=== PATIENT | male | born 1975 | race Caucasian/White ===

== ENCOUNTER 2017-11-23 11:34 | Observation (INO) ==
[2017-11-23 12:02] LABS: Basophils # 0.1 K/mcL (0.0-0.2); Basophils % 0.9 %; Eosinophils # 0.1 K/mcL (0.0-0.6); Eosinophils % 0.6 %; Hemoglobin 17.8 g/dL (12.9-16.9); Immature Granulocytes % 0.4 % (0-4); Lymphocytes % 33.8 %; Mean Corpuscular HGB Conc 36.3 g/dL (31.6-35.5); Mean Corpuscular Hemoglobin 29.1 pg (28.0-33.3); Mean Corpuscular Volume 80.1 fL (83.0-100.0); Mean Platelet Volume 9.5 fL (9.4-12.4); Neutrophils # 6.3 K/mcL (1.6-8.9); Platelet Count 251 K/mcL (140-400); Red Blood Count 6.12 M/mcL (4.19-5.50); Red Cell Distribution Width 14.9 % (11.5-14.5); Segmented Neutrophils % 55.3 %
[2017-11-23 12:06] LABS: Prothrombin Time 10.7 Seconds (9.4-12.1)
[2017-11-23 12:09] LABS: Activated Partial Thrombo Time 25.6 Seconds (26.0-36.0); Lymphocytes # 3.9 K/mcL (0.6-4.6)
--- NOTE | 2017-11-23 12:17 | Emergency Department Note ---
Disposition Clinical Impression: Hypokalemia Chest pain Qualifiers: Chest pain type: unspecified Qualified Code(s): R07.9 - Chest pain, unspecified Disposition: Admitted As Inpatient Condition: Good Referrals: Eryn Tariq CNP [Primary Care Provider] - Forms: ED Satisfaction Letter Time of Disposition: 15:24 Chest Pain HPI - General Chief Complaint: ED Chest Pain Stated Complaint: chest pain Time Seen by Provider: 11/23/17 11:48 Source: patient Vital Signs Reviewed: Yes Nursing Notes Reviewed: Yes - History of Present Illness HPI Narrative: This is a 42 year-male with history of HTN, DM (pt says diet controlled), and scleroderma, who presents with substernal chest pressure, which has been intermittent but gradually worsening for the past 4 days. The pain has both pleuritic and exertional components. He reports mild dyspnea. He denies any associated fever, cough, leg pain or swelling. He denies any history of heart disease, DVT, or PE. Pt complaint: chest pain Onset (ago): day(s) (4) Duration: intermittent, gradually worsening Pain Location: substernal Severity: moderate Severity scale (1-10): 8 Quality: tightness, heaviness Pain Radiation: none Improves with: nothing Worsens with: exertion, inspiration Associated symptoms: Reports: dyspnea (mild). Denies: nausea, vomiting, diaphoresis, syncope, palpitations, fever, cough, leg swelling - Related Data Previous Rx's Medication Instructions Recorded Cephalexin [Keflex] 500 mg PO QID #28 capsule 03/08/15 Hydrocodone/Acetaminophen [Cochran 1 tab PO Q6H PRN #10 tab 03/08/15 5-325 Tablet] MethylPREDNISolone [Medrol] 32 mg PO ONCE #1 tablet 03/08/15 Ibuprofen [Motrin] 400 mg PO Q4HR 7 Days tablet 03/28/15 Ondansetron ODT [Zofran ODT] 4 mg SL ONCE PRN #14 tab.rapdis 03/28/15 TraMADol [Ultram] 50 mg PO Q6HR PRN #12 tablet 03/28/15 Cyclobenzaprine [Flexeril] 10 mg PO HS PRN #10 tablet 07/24/16 Allergies Allergy/AdvReac Type Severity Reaction Status Date / Time prednisone AdvReac Joint Pain Verified 07/24/16 11:04 Constitutional: Denies: fever Cardiovascular: Reports: as per HPI, chest pain. Denies: palpitations, syncope Respiratory: Reports: dyspnea. Denies: cough, wheezes Gastrointestinal: Denies: abdominal pain, nausea, vomiting, diarrhea, constipation Musculoskeletal: Denies: back pain, neck pain Psychiatric: Reports: anxiety Chest Pain PMH - Past Medical History Medical history: Reports: hypertension, other Surgical history: Reports: other Psychiatric history: Reports: no psych history - Social History Smoking Status: Current every day smoker Alcohol use: Reports: none Drug use: Reports: none Physical Exam - General Limitations: no limitations General appearance: alert, anxious - Head Head exam: atraumatic, normocephalic - Eye Eye exam: Present: normal appearance - ENT ENT exam: normal exam - Neck Neck exam: Present: normal inspection - Respiratory Respiratory exam: Present: normal lung sounds bilaterally. Absent: wheezes - Cardiovascular Cardiovascular exam: Present: regular rate, tachycardia - Abdominal Exam Abdominal exam: Present: soft, Non-Tender. Absent: distention - Extremities Exam Extremities exam: Present: normal inspection. Absent: pedal edema, calf tenderness - Neurological Exam Neurological exam: Present: alert, oriented X3. Absent: motor sensory deficit - Psychiatric Psychiatric exam: Present: anxious - Skin Skin exam: Present: warm, dry, intact Course - Reevaluation(s) Reevaluation #1: Updated patient on test results, need for chest CTA. Time: 14:01 Reevaluation #2: Updated patient on test results. As he has both hypokalemia and is still having some chest pain, will admit for rule out as well as potassium replacement. Time: 15:24 - Consultations Consultation #1: Discussed case with Dr. Contreras. Patient accepted. Time: 15:29 Vital Signs Temperature 98.0 F 11/23/17 11:36 Pulse Rate 135 11/23/17 11:36 Respiratory Rate 20 11/23/17 11:36 Blood Pressure 137/97 11/23/17 11:36 O2 Sat by Pulse Oximetry 96 11/23/17 11:36 Temperature 98.0 F 11/23/17 12:20 Pulse Rate 63 11/23/17 14:14 Respiratory Rate 17 11/23/17 12:34 Blood Pressure 139/109 11/23/17 14:14 O2 Sat by Pulse Oximetry 99 11/23/17 14:14 Oxygen Delivery Oxygen Delivery Room Air Chest Pain - MDM Narrative Medical decision making narrative: This is 42 year-old male who presents with chest pain intermittently. He is anxious, which may be the cause, but he does have ACS risk factors as well as tachycardia, so we will work up for ACS and PE. - Lab Data Lab results reviewed: Yes I reviewed the patient's lab results. Result diagrams: 11/23/17 11:49 11/23/17 11:49 Lab Results 11/23/17 11/23/17 11/23/17 Range/Units 11:49 11:49 11:49 WBC 11.4 H (4.3-11.1) K/mcL RBC 6.12 H (4.19-5.50) M/mcL Hgb 17.8 H (12.9-16.9) g/dL Hct 49.0 (37.5-50.1) % MCV 80.1 L (83.0-100.0) fL MCH 29.1 (28.0-33.3) pg MCHC 36.3 H (31.6-35.5) g/dL RDW 14.9 H (11.5-14.5) % Plt Count 251 (140-400) K/mcL MPV 9.5 (9.4-12.4) fL Immature Gran % 0.4 (0-4) % Seg Neutrophils % 55.3 % Lymphocytes % 33.8 % Monocytes % 9.0 % Eosinophils % 0.6 % Basophils % 0.9 % Neutrophils # 6.3 (1.6-8.9) K/mcL Lymphocytes # 3.9 (0.6-4.6) K/mcL Monocytes # 1.0 (0.0-1.3) K/mcL Eosinophils # 0.1 (0.0-0.6) K/mcL Basophils # 0.1 (0.0-0.2) K/mcL PT 10.7 (9.4-12.1) Seconds INR 1.0 APTT 25.6 L (26.0-36.0) Seconds D-Dimer 846 H (0-500) ng/mLFEU Sodium 138 (136-145) mEq/L Potassium 2.8 L (3.5-5.1) mEq/L Chloride 100 (98-107) mEq/L Carbon Dioxide 24 (23-29) mEq/L BUN 2 L (6-20) mg/dL Creatinine 0.75 (0.70-1.30) mg/dL Est GFR ( Amer) > 60 (> 60) Est GFR (Non-Af Amer) > 60 (> 60) BUN/Creatinine Ratio 3 L (6-26) Glucose 110 H (70-105) mg/dL Calculated Osmolality 283 (280-300) Calcium 8.9 (8.6-10.3) mg/dL Troponin I < 0.03 (< 0.04) ng/mL - Radiology Data Radiology results reviewed: Yes I reviewed the patient's radiology results. XR/XR chest 1V portable IMPRESSION: No acute process. CT/CT angio chest IMPRESSION: No pulmonary emboli. Mild bronchial thickening which may be related to bronchitis. No pneumonic infiltrate or pleural effusion. - EKG Data EKG attestation: Yes I reviewed and interpreted this EKG. EKG results narrative: short VT EKG shows normal: sinus rhythm Rate: tachycardia [place]/QRS: normal Voltage: increased voltage throughout When compared to previous EKG there are: no significant changes Interpretation: nonspecific ST-T wave changes
[2017-11-23 12:22] LABS: Troponin I < 0.03 ng/mL (< 0.04)
[2017-11-23 12:23] LABS: BUN/Creatinine Ratio 3 (6-26); Blood Urea Nitrogen 2 mg/dL (6-20); Calcium 8.9 mg/dL (8.6-10.3); Carbon Dioxide 24 mEq/L (23-29); Chloride 100 mEq/L (98-107); Glucose 110 mg/dL (70-105); Osmolality,Calculated 283 (280-300); Potassium 2.8 mEq/L (3.5-5.1); Sodium 138 mEq/L (136-145); eGFR For African Americans > 60 (> 60); eGFR For Non-African Americans > 60 (> 60)
[2017-11-23] MEDS: Aspirin 325 MG TABLET PO ONE (12:32)
[2017-11-23] MEDS ORDERED: Isovue-370 500 ML INFUS..BTL IV ONE (13:56)
[2017-11-23] MEDS ORDERED: Potassium Chloride Elixir 20 MEQ/15 ML UDC PO ONE (13:56)
[2017-11-23] MEDS ORDERED: Ketorolac 30 MG/ML VIAL IVP ONE (15:29)
[2017-11-23] MEDS ORDERED: Naloxone 0.4 MG/ML INJ IVP PRN (17:27)
[2017-11-23] MEDS ORDERED: Ibuprofen 400 MG TABLET PO PRN (17:27)
--- NOTE | 2017-11-23 17:44 | Internal Med History&Physical ---
Date of Encounter: 11/23/17 Time of Encounter: 17:34 Internal Medicine - H&P: HPI Admitted From: Home Plans for Post Hospital Care: Home History of present illness: This is a 42 year-male with history of HTN, DM (pt says diet controlled), and scleroderma, who presents with substernal chest pressure, which has been intermittent but gradually worsening for the past 4 days. Today, the pain became so severe that he cannot even walk a few steps without having pain, he rated 10 out of 10 , The pain has both pleuritic and exertional components. He reports mild dyspnea because he is afraid to take deep breath. He denies any associated fever, cough, leg pain or swelling. He denies any history of heart disease, DVT, or PE. At the ED, he was found to have elevated d-dimer, CTA chest showed no PE, no pleural effusion, no consolidations. Patient will be admitted for observation. Past Med Surg Social Fam HX - Past Medical History Medical history: hypertension, other Psychiatric history: no psych history - Past Surgical History Surgical History: other - Social History Smoking Status: Current every day smoker Smokeless Tobacco Status: No Alcohol use: none Drug use: none Internal Medicine - H&P: Meds Buprenorphine HCl [Subutex] 8 mg SL BID 11/23/17 [History] Citalopram Hydrobromide [Citalopram HBr] 40 mg PO DAILY 11/23/17 [History] Lisinopril [Zestril] 10 mg PO DAILY 11/23/17 [History] 3 Allergy/AdvReac Type Severity Reaction Status Date / Time prednisone AdvReac Joint Pain Verified 07/24/16 11:04 All Systems PM: A 10-system review of systems was performed and is negative for pertinent findings except as documented above in the HPI. Review of systems: REVIEW OF SYSTEMS: CONSTITUTIONAL: No weight loss, fever, chills, weakness or fatigue. HEENT: Eyes: No visual loss, blurred vision, double vision or yellow sclerae. Ears, Nose, Throat: No hearing loss, sneezing, congestion, runny nose or sore throat. SKIN: No rash or itching. CARDIOVASCULAR: see HPI. RESPIRATORY: No shortness of breath, cough or sputum. GASTROINTESTINAL: No anorexia, nausea, vomiting or diarrhea. No abdominal pain or blood. GENITOURINARY: No dysuria, urgency, or frequency. NEUROLOGICAL: No headache, dizziness, syncope, paralysis, ataxia, numbness or tingling in the extremities. No change in bowel or bladder control. MUSCULOSKELETAL: No muscle, back pain, joint pain or stiffness. HEMATOLOGIC: No anemia, bleeding or bruising. LYMPHATICS: No enlarged nodes. No history of splenectomy. PSYCHIATRIC: No history of depression or anxiety. ENDOCRINOLOGIC: No reports of sweating, cold or heat intolerance. No polyuria or polydipsia. - Constitutional Vitals: Temp Pulse Resp BP Pulse Ox 98.4 F 86 16 147/100 98 11/23/17 17:10 11/23/17 17:10 11/23/17 17:10 11/23/17 17:10 11/23/17 17:10 General appearance: Present: A&O X 3 Exam: PHYSICAL EXAMINATION: GENERAL APPEARANCE: The patient is alert, oriented and in no acute distress. HEENT: Head is normocephalic. The sinuses are nontender. Pupils are equal and reactive. The nares are patent. Oropharynx clear without lesions. NECK: Supple without lymphadenopathy. HEART: Regular rate and rhythm. LUNGS: No crackles or wheezes are heard. ABDOMEN: Soft, nontender, nondistended with good bowel sounds heard. Inguinal area is normal. EXTREMITIES: Without cyanosis, clubbing or edema. NEUROLOGICAL: Gross nonfocal. SKIN: Warm and dry without any rash. Internal Med - H&P Results - Labs CBC & Chem 7: 11/23/17 11:49 11/23/17 11:49 - Assessment and plan (1) Chest pain Current Visit: Yes Status: Acute Assessment and plan: 42-year-old male with past medical history of scleroderma and hypertension presented with acute onset of pleuritic chest pain. EKG no acute ST-T change, first set of troponins negative. - Pain is pleuritic and positional, consistent with pericarditis/pleuritis in the setting of scleroderma, we will check ESR/CRP/pro-calcitonin. Continue ibuprofen/tramadol for pain. - Echocardiogram. - Cycle troponin, telemetry monitoring, EKG as needed. Qualifiers: Chest pain type: unspecified Qualified Code(s): R07.9 - Chest pain, unspecified (2) Hypertension Current Visit: No Status: Chronic Assessment and plan: BP well controlled, continue home medications. Qualifiers: Hypertension type: essential hypertension Qualified Code(s): I10 - Essential (primary) hypertension (3) Scleroderma Current Visit: No Status: Chronic Assessment and plan: On remission, not on any medications at home. (4) Hypokalemia Current Visit: Yes Status: Acute Assessment and plan: Replaced, repeat BMP in a.m. - Time Spent With Patient Total time spent is greater than 50% in coordination of care (as documented) at patient's floor/unit and/or counseling patient: Greater than 35 minutes
[2017-11-23] MEDS: *HR* Heparin 5,000 UNIT/ML VIAL SQ SCH (18:28)
[2017-11-23] MEDS: traMADol 50 MG TABLET PO PRN (18:28)
[2017-11-23] MEDS: Ondansetron 4 MG/2 ML VIAL IVP PRN (22:06)
[2017-11-23] MEDS: *HR* Buprenorphine HCl 8 MG TAB.SUBL SL SCH (22:06)
[2017-11-24 00:49] LABS: Basophils # 0.1 K/mcL (0.0-0.2); Basophils % 0.6 %; Eosinophils % 0.3 %; Hematocrit 47.6 % (37.5-50.1); Hemoglobin 17.5 g/dL (12.9-16.9); Immature Granulocytes % 0.4 % (0-4); Lymphocytes # 2.9 K/mcL (0.6-4.6); Lymphocytes % 20.2 %; Mean Corpuscular HGB Conc 36.8 g/dL (31.6-35.5); Mean Corpuscular Hemoglobin 30.2 pg (28.0-33.3); Mean Corpuscular Volume 82.1 fL (83.0-100.0); Mean Platelet Volume 9.6 fL (9.4-12.4); Monocytes # 1.1 K/mcL (0.0-1.3); Monocytes % 7.8 %; Neutrophils # 10.1 K/mcL (1.6-8.9); Platelet Count 214 K/mcL (140-400); Red Cell Distribution Width 14.1 % (11.5-14.5); Segmented Neutrophils % 70.7 %
[2017-11-24 01:06] LABS: Alanine Aminotransferase 19 Units/L (7-52); Albumin 4.1 g/dL (3.5-5.7); Albumin/Globulin Ratio 1.4 (1.1-2.2); Alkaline Phosphatase 80 Units/L (34-104); Aspartate Amino Transferase 19 Units/L (13-39); BUN/Creatinine Ratio 4 (6-26); Bilirubin,Total 1.6 mg/dL (0.3-1.0); Blood Urea Nitrogen 3 mg/dL (6-20); Calcium 9.3 mg/dL (8.6-10.3); Carbon Dioxide 24 mEq/L (23-29); Chloride 104 mEq/L (98-107); Chol/HDL Ratio 2.4 (0-4.9); Cholesterol 127 mg/dL (< 200); Glucose 122 mg/dL (70-105); HDL Cholesterol 54 mg/dL (40-59); LDL Cholesterol,Calculated 47 mg/dL (0-99); Osmolality,Calculated 284 (280-300); Potassium 3.1 mEq/L (3.5-5.1); Sodium 138 mEq/L (136-145); Total Protein 7.1 g/dL (6.4-8.9); Triglycerides 130 mg/dL (< 150); eGFR For African Americans > 60 (> 60); eGFR For Non-African Americans > 60 (> 60)
[2017-11-24] MEDS: Ibuprofen 800 MG TABLET PO PRN ×3 (02:21→20:27)
[2017-11-24] MEDS: traMADol 50 MG TABLET PO PRN (05:11)
[2017-11-24] MEDS: Ondansetron 4 MG/2 ML VIAL IVP PRN ×2 (05:12→20:37)
[2017-11-24] MEDS: *HR* Heparin 5,000 UNIT/ML VIAL SQ SCH ×2 (05:12→17:40)
[2017-11-24] MEDS: *HR* Buprenorphine HCl 8 MG TAB.SUBL SL SCH ×2 (09:05→20:27)
[2017-11-24] MEDS ORDERED: diazePAM 5 MG TABLET PO PRN (12:55)
--- NOTE | 2017-11-24 13:05 | Internal Med Progress Note ---
Date of Encounter: 11/24/17 Time of Encounter: 13:01 - Assessment and plan (1) Chest pain Current Visit: Yes Status: Acute Assessment and plan: 42-year-old male with past medical history of scleroderma and hypertension presented with acute onset of pleuritic chest pain. EKG no acute ST-T change, troponins negative. - Pain is pleuritic and positional, pericarditis/pleuritis was suspected in the setting of scleroderma, however, CRP/ESR are normal. Pro-calcitonin pending. WBC was elevated, but no identifiable infectious source, antibiotics not indicated, likely stress related, continue monitoring. CT chest possible bronchitis but no other abnormalities. Pending echocardiogram. - Patient describes the pain was so severe that he even cannot walk a few steps without pain. Pain was started at the left chest and then radiated to the right chest. It is not typical for cardiac related chest pain. Musculoskeletal pain was suspected, we will start the patient on Lidoderm patch. - Patient currently taking Subutex for chronic pain, he also take Valium at home for spasm. Qualifiers: Chest pain type: unspecified Qualified Code(s): R07.9 - Chest pain, unspecified (2) Hypertension Current Visit: No Status: Chronic Assessment and plan: BP well controlled, continue home medications. Qualifiers: Hypertension type: essential hypertension Qualified Code(s): I10 - Essential (primary) hypertension (3) Scleroderma Current Visit: No Status: Chronic Assessment and plan: On remission, not on any medications at home. (4) Hypokalemia Current Visit: Yes Status: Acute Assessment and plan: Replaced, repeat BMP in a.m. - Time Spent With Patient Total time spent is greater than 50% in coordination of care (as documented) at patient's floor/unit and/or counseling patient: Greater than 35 minutes - Subjective Interval history: Patient is seen and examined in the room, he still reported severe chest pain when he gets around. He denies fever, chills, or night sweats. He has no palpitation, syncope, or shortness of breath. - Constitutional Vitals: Temp Pulse Resp BP Pulse Ox 98.0 F 96 18 141/103 96 11/24/17 12:30 11/24/17 12:30 11/24/17 12:30 11/24/17 12:30 11/24/17 12:30 General appearance: Present: A&O X 3 Exam: PHYSICAL EXAMINATION: GENERAL APPEARANCE: The patient is alert, oriented and in no acute distress. HEENT: Head is normocephalic. The sinuses are nontender. Pupils are equal and reactive. The nares are patent. Oropharynx clear without lesions. NECK: Supple without lymphadenopathy. HEART: Regular rate and rhythm. LUNGS: No crackles or wheezes are heard. ABDOMEN: Soft, nontender, nondistended with good bowel sounds heard. Inguinal area is normal. EXTREMITIES: Without cyanosis, clubbing or edema. NEUROLOGICAL: Gross nonfocal. SKIN: Warm and dry without any rash. Internal Medicine: Result - Labs CBC & Chem 7: 11/24/17 00:29 11/24/17 00:29 Labs: Short CBC 11/24/17 Range/Units 00:29 WBC 14.3 H (4.3-11.1) K/mcL Hgb 17.5 H (12.9-16.9) g/dL Hct 47.6 (37.5-50.1) % Plt Count 214 (140-400) K/mcL Neutrophils # 10.1 H (1.6-8.9) K/mcL BMP 11/24/17 00:29 Sodium 138 Potassium 3.1 L Chloride 104 Carbon Dioxide 24 BUN 3 L Creatinine 0.72 Glucose 122 H Calcium 9.3 Cardiac Enzymes 11/23/17 11/24/17 Range/Units 17:52 00:29 Troponin I < 0.03 < 0.03 (< 0.04) ng/mL Liver Function 11/24/17 Range/Units 00:29 Total Bilirubin 1.6 H (0.3-1.0) mg/dL AST 19 (13-39) Units/L ALT 19 (7-52) Units/L Alkaline Phosphatase 80 (34-104) Units/L Albumin 4.1 (3.5-5.7) g/dL - ABG Interpretation ABG results: PT/INR, D-dimer PT 10.7 Seconds (9.4-12.1) 11/23/17 11:49 D-Dimer 846 ng/mLFEU (0-500) H 11/23/17 11:49 Consult Discharge Plan - Plan Referrals: Eryn Tariq, [employer] [Primary Care Provider] -
[2017-11-24] MEDS: diazePAM 5 MG TABLET PO PRN ×2 (13:26→17:45)
[2017-11-24] MEDS: Ringers Solution, Lactated 1,000 ML IVC SCH ×2 (13:30→22:28)
--- NOTE | 2017-11-24 23:20 | Electrocardiograph Report ---
[address] [address] Test Date: 2017-11-23 Pat Name: Patrick Herring Department: 104 Room: 2A36 Gender: M Head Waiter: ELIZABETH : 1975 Requested By: Barrett Cerda Order Number: [id number] Reading MD: Jimena Sena Measurements Intervals [place] Rate: 125 P: 71 FL: 88 QRS: 75 QRSD: 82 T: 89 QT: 324 QTc: 398 Interpretive Statements SINUS TACHYCARDIA WITH SHORT FL INTERVAL MINIMAL VOLTAGE CRITERIA FOR LVH, CONSIDER NORMAL VARIANT NONSPECIFIC ST & T-WAVE ABNORMALITY ABNORMAL RHYTHM ECG Electronically Signed On 11-24-2017 23:18:41 EDT by Jimena Sena
[2017-11-25] MEDS: diazePAM 5 MG TABLET PO PRN (01:40)
[2017-11-25] MEDS: *HR* Heparin 5,000 UNIT/ML VIAL SQ SCH (05:19)
[2017-11-25] MEDS: Ringers Solution, Lactated 1,000 ML IVC SCH (05:53)
[2017-11-25] MEDS: *HR* Buprenorphine HCl 8 MG TAB.SUBL SL SCH (08:44)
[2017-11-25] MEDS ORDERED: Lisinopril 20 MG TABLET PO SCH (09:00)
[2017-11-25] MEDS ORDERED: Lidocaine Viscous Oral Soln 15 ML SOLUTION MM PRN (10:03)
[2017-11-25 11:20] VITALS: BP 137/86
[2017-11-25] MEDS: Ibuprofen 800 MG TABLET PO PRN (11:41)
[2017-11-25] MEDS ORDERED: Potassium Chloride 40 MEQ, Lidocaine 1% 2 ML in D5% in Water 500 ML IVPB ONE (14:50)
--- NOTE | 2017-11-25 14:51 | Discharge Summary ---
- NOTES TO OUTPATIENT PROVIDER Notes to Outpatient Provider: Consider follow-up with rheumatology for reported scleroderma Orders not resulted at time of discharge: Pending orders 11/23/17 17:52 Procalcitonin Routine 11/26/17 09:00 PTT [Activated Partial Thrombo Time] [COAG] Timed Date of Encounter: 11/25/17 Time of Encounter: 14:30 - Discharge Diagnosis (1) Chest pain Priority: Primary Status: Acute Assessment and Plan: CT negative for pulmonary embolism or aortic pathology. Echo shows no wall motion abnormalities with preserved ejection fraction. Troponins were negative. There are no new EKG ST or T-wave changes. As such, PE, ACS and aortic dissection had been ruled out. He does report scleroderma which can cause esophageal pathologies. We explained that he needs to see his hopper operator in clinic and possibly gastroenterology subsequently. Qualifiers: Chest pain type: unspecified Qualified Code(s): R07.9 - Chest pain, unspecified (2) Hypokalemia Priority: Secondary Status: Acute Assessment and Plan: Replete as needed (3) Hypertension Priority: Secondary Status: Chronic Assessment and Plan: BP well controlled, continue home medications. Qualifiers: Hypertension type: essential hypertension Qualified Code(s): I10 - Essential (primary) hypertension (4) Scleroderma Priority: Secondary Status: Suspected Assessment and Plan: It is unclear if he has scleroderma. There is no antibodies and in our system to prove this. He does not have clinical manifestations of scleroderma. He reports scleroderma diagnosed at age 2 and has not been on any therapy. When questioned further about manifestations that he is experienced in the past he points to joint surgeries that he had to undergo because of scleroderma. He reports seeing [facility] for treatment but is not following up with them. Advised to establish contact with a hopper operator in follow-up in clinic. Hospital course: Mr. Herring is a 42 year old male Discharge discussed with: patient - Time Spent with Patient Total time spent providing and/or coordinating discharge services: Greater than 30 minutes - Discharge Medications Home Medications: Buprenorphine HCl [Subutex] 8 mg SL BID 11/23/17 [History] Citalopram Hydrobromide [Citalopram HBr] 40 mg PO DAILY 11/23/17 [History] Lisinopril [Zestril] 10 mg PO DAILY 11/23/17 [History] Diazepam 5 mg PO TID PRN 11/24/17 [History] Allergies/Adverse Reactions: 3 Allergy/AdvReac Type Severity Reaction Status Date / Time prednisone AdvReac Joint Pain Verified 07/24/16 11:04 Date of admission: 11/23/17 15:55 Primary care physician: Eryn Tariq CNP Discharging clinician: Yefri Maya Anticipated date of discharge: 11/25/17 - Constitutional Vitals: Temp Pulse Resp BP Pulse Ox 98.2 F 68 16 137/86 97 11/25/17 11:15 11/25/17 11:15 11/25/17 11:15 11/25/17 11:15 11/25/17 11:15 General appearance: Present: A&O X 3 Exam: Physical exam Gen: Comfortable, laying in bed, in no visible distress HEENT: Normocephalic, atraumatic. No conjunctival icterus. Moist oral mucosa. Neck: Supple Lungs: Clear to auscultation, no foreign sounds Heart: Normal S1-S2, no murmurs rubs or gallops Abdomen: Normoactive bowel sounds, no guarding rigidity or tenderness Extremities: No edema clubbing or cyanosis Neuro: Alert oriented 3, no focal deficits Skin: No skin lesions - Patient Status Disposition: Home, Self-Care Functional capacity at discharge: independent ambulation Overall status at discharge: patient is back to baseline - Discharge Instructions Follow Up With: Eryn Tariq CNP [Primary Care Provider] - Additional Instructions: Follow-up with the rheumatology clinic at [facility]. - Diet and Activity Activity: resume usual activities as tolerated Diet: advance to your usual diet
== END 2017-11-25 15:42 | disposition home or self-care (01) ==
LOC: 2ANU 11:34 → EMEROO 11:34 → 2ANU 16:18
PROVIDERS: ADMIT Student in an Organized Health Care Education/Training Program; ATTEND General Practice

== ENCOUNTER 2019-11-19 22:19 | Inpatient (IN) ==
[2019-11-19] MEDS ORDERED: *HR* LORazepam 2 MG/ML VIAL IVP ONE (22:32)
[2019-11-19] MEDS ORDERED: 0.9 % Sodium Chloride 500 ML IVC ONE (22:32)
[2019-11-19] MEDS ORDERED: Ondansetron 4 MG/2 ML VIAL IVP ONE (22:38)
[2019-11-19 23:17] LABS: Basophils % 0.4 %; Hematocrit 52.9 % (37.5-50.1); Immature Granulocytes % 0.2 % (0-4); Lymphocytes # 3.6 K/mcL (0.6-4.6); Lymphocytes % 32.1 %; Mean Corpuscular Hemoglobin 29.9 pg (28.0-33.3); Mean Corpuscular Volume 87.9 fL (83.0-100.0); Mean Platelet Volume 10.1 fL (9.4-12.4); Monocytes # 0.6 K/mcL (0.0-1.3); Monocytes % 5.5 %; Neutrophils # 6.9 K/mcL (1.6-8.9); Platelet Count 319 K/mcL (140-400); Red Blood Count 6.02 M/mcL (4.19-5.50); Red Cell Distribution Width 12.7 % (11.5-14.5); Segmented Neutrophils % 61.8 %; White Blood Count 11.1 K/mcL (4.3-11.1)
[2019-11-19 23:19] LABS: Bilirubin,Urine Negative (Negative); Blood,Urine Negative (Negative); Clarity,Urine Clear (Clear); Color,Urine Yellow (Yellow); Glucose,Urine (UA) Normal (Normal); Ketones,Urine Negative (Negative); Leukocyte Esterase,Urine Negative (Negative); Nitrite,Urine Negative (Negative); PH,Urine 7.5 pH Units (5.0-8.0); Protein,Urine 100 mg/dL (Neg-Trace); Specific Gravity,Urine 1.016 (1.010-1.025); Urobilinogen,Urine Normal (Normal)
[2019-11-19 23:24] LABS: Bacteria,Urine None Seen per hpf (None-Few); Hyaline Casts,Urine None Seen per lpf (None-Few); Squamous Epithelial Cell,Urine Few per lpf (None-Few); WBC,Urine 0-3 per hpf (0-3)
[2019-11-19 23:28] LABS: Amphetamine Screen,Urine Negative ng/mL (Cutoff=1000); Barbiturate Screen,Urine Negative ng/mL (Cutoff=200); Benzodiazepines Screen,Urine Negative ng/mL (Cutoff=200); Cannabinoid Screen,Urine Positive ng/mL (Cutoff = 50); Cocaine Screen,Urine Negative ng/mL (Cutoff= 300); Opiate Screen,Urine Negative ng/mL (Cutoff=300); Phencyclidine Screen,Urine Negative ng/mL (Cutoff=25)
[2019-11-19 23:37] LABS: Acetaminophen < 10 mcg/mL (10-20); BUN/Creatinine Ratio 8 (6-26); Blood Urea Nitrogen 7 mg/dL (6-20); Carbon Dioxide 26 mEq/L (23-29); Chloride 98 mEq/L (98-107); Ethanol 370 mg/dL (Less than 10); Glucose 187 mg/dL (70-105); Osmolality,Calculated 295 (280-300); Potassium 3.4 mEq/L (3.5-5.1); Salicylate < 2.5 mg/dL (15.0-30.0); Sodium 141 mEq/L (136-145); eGFR For African Americans > 60 (> 60); eGFR For Non-African Americans > 60 (> 60)
[2019-11-19] MEDS ORDERED: MVI, adult with vitamin K 10 ML, Folic Acid 1 MG, Thiamine (B-1) 100 MG in 0.9 % Sodi... IV ONE (23:45)
[2019-11-20] MEDS ORDERED: Naloxone 0.4 MG/ML INJ IVP PRN (01:26)
[2019-11-20] MEDS ORDERED: *HR* LORazepam 2 MG/ML VIAL IVP PRN ×2 (01:30)
[2019-11-20] MEDS: *HR* LORazepam 2 MG/ML VIAL IVP PRN ×4 (02:07→19:55)
[2019-11-20 04:17] LABS: Hematocrit 46.8 % (37.5-50.1); Mean Corpuscular Hemoglobin 29.7 pg (28.0-33.3); Mean Corpuscular Volume 87.3 fL (83.0-100.0); Mean Platelet Volume 9.9 fL (9.4-12.4); Platelet Count 255 K/mcL (140-400); Red Blood Count 5.36 M/mcL (4.19-5.50); Red Cell Distribution Width 12.7 % (11.5-14.5); White Blood Count 13.2 K/mcL (4.3-11.1)
[2019-11-20 04:18] LABS: Hemoglobin 15.9 g/dL (12.9-16.9)
[2019-11-20 04:31] LABS: BUN/Creatinine Ratio 13 (6-26); Blood Urea Nitrogen 9 mg/dL (6-20); Calcium 8.2 mg/dL (8.6-10.3); Carbon Dioxide 27 mEq/L (23-29); Chloride 100 mEq/L (98-107); Glucose 123 mg/dL (70-105); Osmolality,Calculated 290 (280-300); Potassium 3.7 mEq/L (3.5-5.1); Sodium 140 mEq/L (136-145); eGFR For African Americans > 60 (> 60); eGFR For Non-African Americans > 60 (> 60)
[2019-11-20] MEDS: *HR* Heparin 5,000 UNIT/ML VIAL SQ SCH ×2 (05:15→17:09)
[2019-11-20] MEDS: Ondansetron 4 MG/2 ML VIAL IVP PRN ×2 (05:21→17:07)
[2019-11-20 08:19] LABS: Estimated Average Glucose 94 mg/dl
[2019-11-20] MEDS: Thiamine (B-1) 100 MG TABLET PO SCH (08:49)
[2019-11-20] MEDS: Folic Acid 1 MG TABLET PO SCH (08:49)
[2019-11-20] MEDS: Vitamin B Complex/Vit C/Vit E 1 EACH TABLET PO SCH (08:49)
[2019-11-20] MEDS ORDERED: Thiamine (B-1) 100 MG TABLET PO SCH (09:00)
[2019-11-20] MEDS ORDERED: Ondansetron 4 MG/2 ML VIAL IVP ONE (19:42)
[2019-11-20] MEDS ORDERED: Acetaminophen 325 MG TABLET PO ONE (20:04)
[2019-11-21] MEDS: *HR* LORazepam 2 MG/ML VIAL IVP PRN ×6 (00:25→20:24)
[2019-11-21] MEDS: Ondansetron 4 MG/2 ML VIAL IVP PRN ×2 (01:48→18:50)
[2019-11-21 02:52] LABS: Hematocrit 39.6 % (37.5-50.1); Mean Corpuscular HGB Conc 34.6 g/dL (31.6-35.5); Mean Corpuscular Hemoglobin 30.2 pg (28.0-33.3); Mean Corpuscular Volume 87.4 fL (83.0-100.0); Mean Platelet Volume 10.4 fL (9.4-12.4); Platelet Count 193 K/mcL (140-400); Red Blood Count 4.53 M/mcL (4.19-5.50); Red Cell Distribution Width 12.7 % (11.5-14.5); White Blood Count 7.5 K/mcL (4.3-11.1)
[2019-11-21 02:55] LABS: Hemoglobin 13.7 g/dL (12.9-16.9)
[2019-11-21 03:08] LABS: BUN/Creatinine Ratio 12 (6-26); Blood Urea Nitrogen 12 mg/dL (6-20); Calcium 9.1 mg/dL (8.6-10.3); Carbon Dioxide 29 mEq/L (23-29); Chloride 101 mEq/L (98-107); Glucose 131 mg/dL (70-105); Magnesium 1.8 mg/dL (1.6-2.6); Osmolality,Calculated 282 (280-300); Potassium 3.3 mEq/L (3.5-5.1); Sodium 135 mEq/L (136-145); eGFR For African Americans > 60 (> 60); eGFR For Non-African Americans > 60 (> 60)
[2019-11-21] MEDS ORDERED: Acetaminophen IV 1,000 MG/100 ML INFUS..BTL IVPB ONE (03:30)
[2019-11-21] MEDS: *HR* Heparin 5,000 UNIT/ML VIAL SQ SCH ×2 (05:03→17:51)
[2019-11-21] MEDS: Thiamine (B-1) 100 MG TABLET PO SCH (08:36)
[2019-11-21] MEDS: Vitamin B Complex/Vit C/Vit E 1 EACH TABLET PO SCH (08:36)
[2019-11-21] MEDS: Folic Acid 1 MG TABLET PO SCH (08:36)
[2019-11-22 01:20] LABS: Hematocrit 43.8 % (37.5-50.1); Hemoglobin 14.6 g/dL (12.9-16.9); Mean Corpuscular HGB Conc 33.3 g/dL (31.6-35.5); Mean Corpuscular Hemoglobin 29.9 pg (28.0-33.3); Mean Corpuscular Volume 89.8 fL (83.0-100.0); Mean Platelet Volume 10.4 fL (9.4-12.4); Platelet Count 204 K/mcL (140-400); Red Blood Count 4.88 M/mcL (4.19-5.50); Red Cell Distribution Width 12.5 % (11.5-14.5); White Blood Count 9.6 K/mcL (4.3-11.1)
[2019-11-22 01:38] LABS: BUN/Creatinine Ratio 14 (6-26); Blood Urea Nitrogen 12 mg/dL (6-20); Calcium 9.4 mg/dL (8.6-10.3); Carbon Dioxide 27 mEq/L (23-29); Chloride 103 mEq/L (98-107); Glucose 96 mg/dL (70-105); Osmolality,Calculated 286 (280-300); Potassium 3.5 mEq/L (3.5-5.1); Sodium 138 mEq/L (136-145); eGFR For African Americans > 60 (> 60); eGFR For Non-African Americans > 60 (> 60)
[2019-11-22] MEDS: Nicotine 21 MG PATCH.TD24 TD SCH ×2 (01:42→20:16)
[2019-11-22] MEDS: Melatonin 3 MG TABLET PO PRN ×2 (01:42→20:16)
[2019-11-22] MEDS: *HR* LORazepam 2 MG/ML VIAL IVP PRN ×3 (04:08→20:17)
[2019-11-22] MEDS: *HR* Heparin 5,000 UNIT/ML VIAL SQ SCH ×2 (05:01→15:27)
[2019-11-22] MEDS: Thiamine (B-1) 100 MG TABLET PO SCH (08:57)
[2019-11-22] MEDS: Vitamin B Complex/Vit C/Vit E 1 EACH TABLET PO SCH (08:57)
[2019-11-22] MEDS: Folic Acid 1 MG TABLET PO SCH (08:57)
[2019-11-22] MEDS: Ondansetron 4 MG/2 ML VIAL IVP PRN (09:15)
[2019-11-22] MEDS: Pantoprazole 40 MG VIAL IVP SCH (12:07)
[2019-11-23] MEDS: *HR* LORazepam 2 MG/ML VIAL IVP PRN ×3 (03:11→19:44)
[2019-11-23] MEDS: Ondansetron 4 MG/2 ML VIAL IVP PRN ×2 (03:19→18:04)
[2019-11-23] MEDS: *HR* Heparin 5,000 UNIT/ML VIAL SQ SCH ×2 (05:35→17:22)
[2019-11-23 06:51] LABS: Hematocrit 37.4 % (37.5-50.1); Hemoglobin 12.9 g/dL (12.9-16.9); Mean Corpuscular HGB Conc 34.5 g/dL (31.6-35.5); Mean Corpuscular Hemoglobin 30.7 pg (28.0-33.3); Mean Platelet Volume 10.8 fL (9.4-12.4); Platelet Count 174 K/mcL (140-400); Red Cell Distribution Width 12.7 % (11.5-14.5); White Blood Count 9.9 K/mcL (4.3-11.1)
[2019-11-23 07:15] LABS: BUN/Creatinine Ratio 16 (6-26); Blood Urea Nitrogen 12 mg/dL (6-20); Calcium 9.4 mg/dL (8.6-10.3); Carbon Dioxide 28 mEq/L (23-29); Chloride 104 mEq/L (98-107); Glucose 102 mg/dL (70-105); Magnesium 1.9 mg/dL (1.6-2.6); Osmolality,Calculated 288 (280-300); Potassium 4.3 mEq/L (3.5-5.1); Sodium 139 mEq/L (136-145); eGFR For African Americans > 60 (> 60); eGFR For Non-African Americans > 60 (> 60)
[2019-11-23] MEDS: Folic Acid 1 MG TABLET PO SCH (09:08)
[2019-11-23] MEDS: Pantoprazole 40 MG VIAL IVP SCH (09:08)
[2019-11-23] MEDS: Vitamin B Complex/Vit C/Vit E 1 EACH TABLET PO SCH (09:08)
[2019-11-23] MEDS: Thiamine (B-1) 100 MG TABLET PO SCH (09:08)
[2019-11-23] MEDS ORDERED: *HR* Promethazine 25 MG/ML VIAL IVP ONE (19:26)
[2019-11-23] MEDS: Melatonin 3 MG TABLET PO PRN (22:18)
[2019-11-23] MEDS: Nicotine 21 MG PATCH.TD24 TD SCH (22:19)
[2019-11-24] MEDS ORDERED: Ketorolac 15 MG/ML VIAL IVP PRN (02:11)
[2019-11-24] MEDS: *HR* LORazepam 2 MG/ML VIAL IVP PRN (03:30)
[2019-11-24] MEDS: *HR* Heparin 5,000 UNIT/ML VIAL SQ SCH (05:28)
[2019-11-24 07:04] VITALS: BP 122/87
[2019-11-24 08:07] LABS: Hematocrit 36.4 % (37.5-50.1); Hemoglobin 12.6 g/dL (12.9-16.9); Mean Corpuscular HGB Conc 34.6 g/dL (31.6-35.5); Mean Corpuscular Hemoglobin 30.8 pg (28.0-33.3); Mean Platelet Volume 10.3 fL (9.4-12.4); Platelet Count 186 K/mcL (140-400); Red Blood Count 4.09 M/mcL (4.19-5.50); White Blood Count 10.9 K/mcL (4.3-11.1)
[2019-11-24 08:14] LABS: BUN/Creatinine Ratio 21 (6-26); Blood Urea Nitrogen 18 mg/dL (6-20); Carbon Dioxide 28 mEq/L (23-29); Chloride 102 mEq/L (98-107); Glucose 85 mg/dL (70-105); Osmolality,Calculated 285 (280-300); Sodium 137 mEq/L (136-145); eGFR For African Americans > 60 (> 60); eGFR For Non-African Americans > 60 (> 60)
[2019-11-24] MEDS: Vitamin B Complex/Vit C/Vit E 1 EACH TABLET PO SCH (08:35)
[2019-11-24] MEDS: Thiamine (B-1) 100 MG TABLET PO SCH (08:35)
[2019-11-24] MEDS: Pantoprazole 40 MG VIAL IVP SCH (08:35)
[2019-11-24] MEDS: Folic Acid 1 MG TABLET PO SCH (08:35)
[2019-11-24] MEDS: Ondansetron 4 MG/2 ML VIAL IVP PRN (08:47)
== END 2019-11-24 11:07 | disposition home or self-care (01) | DRG 897 ==
LOC: 3BNU 22:19 → EMEROOARM 22:19 → SUATTDRO 11-20 → 3BNU 11-20 00:54
PROVIDERS: ADMIT Internal Medicine; ATTEND Internal Medicine

== ENCOUNTER 2020-07-23 17:59 | Inpatient (IN) ==
[2020-07-23 18:52] LABS: Basophils # 0.1 K/mcL (0.0-0.2); Basophils % 0.6 %; Hematocrit 45.5 % (37.5-50.1); Hemoglobin 15.9 g/dL (12.9-16.9); Immature Granulocytes % 0.4 % (0-4); Lymphocytes # 2.6 K/mcL (0.6-4.6); Lymphocytes % 33.6 %; Mean Corpuscular HGB Conc 34.9 g/dL (31.6-35.5); Mean Corpuscular Hemoglobin 28.9 pg (28.0-33.3); Mean Corpuscular Volume 82.7 fL (83.0-100.0); Mean Platelet Volume 9.6 fL (9.4-12.4); Monocytes # 0.3 K/mcL (0.0-1.3); Monocytes % 3.2 %; Neutrophils # 4.8 K/mcL (1.6-8.9); Platelet Count 312 K/mcL (140-400); Red Cell Distribution Width 12.2 % (11.5-14.5); Segmented Neutrophils % 62.2 %; White Blood Count 7.7 K/mcL (4.3-11.1)
[2020-07-23 18:56] LABS: Bilirubin,Urine Negative (Negative); Blood,Urine Negative (Negative); Clarity,Urine Clear (Clear); Color,Urine Colorless (Yellow); Glucose,Urine (UA) Normal (Normal); Ketones,Urine Negative (Negative); Leukocyte Esterase,Urine Negative (Negative); Nitrite,Urine Negative (Negative); Protein,Urine Trace mg/dL (Neg-Trace); Specific Gravity,Urine 1.006 (1.010-1.025); Urobilinogen,Urine Normal (Normal)
[2020-07-23 19:00] LABS: Amphetamine Screen,Urine Negative ng/mL (Cutoff=1000); Barbiturate Screen,Urine Negative ng/mL (Cutoff=200); Benzodiazepines Screen,Urine Negative ng/mL (Cutoff=200); Cannabinoid Screen,Urine Positive ng/mL (Cutoff = 50); Cocaine Screen,Urine Negative ng/mL (Cutoff= 300); Opiate Screen,Urine Negative ng/mL (Cutoff=300); Phencyclidine Screen,Urine Negative ng/mL (Cutoff=25)
[2020-07-23 19:09] LABS: Acetaminophen < 10 mcg/mL (10-20); BUN/Creatinine Ratio 7 (6-26); Blood Urea Nitrogen 5 mg/dL (6-20); Calcium 9.6 mg/dL (8.6-10.3); Carbon Dioxide 29 mEq/L (23-29); Chloride 102 mEq/L (98-107); Ethanol 442 mg/dL (Less than 10); Glucose 139 mg/dL (70-105); Osmolality,Calculated 300 (280-300); Salicylate < 2.5 mg/dL (15.0-30.0); Sodium 145 mEq/L (136-145); eGFR For African Americans > 60 (> 60); eGFR For Non-African Americans > 60 (> 60)
[2020-07-23 19:40] LABS: Troponin I < 0.03 ng/mL (< 0.04)
[2020-07-23] MEDS ORDERED: *HR* LORazepam 2 MG/ML VIAL IVP PRN ×2 (21:15)
[2020-07-23] MEDS ORDERED: Prochlorperazine 10 MG/2 ML VIAL IVP PRN (21:21)
[2020-07-23] MEDS ORDERED: Naloxone 0.4 MG/ML INJ IVP PRN (21:21)
[2020-07-23] MEDS ORDERED: *HR* Dextrose 50 % in Water (Vial) 50 ML VIAL IVP PRN (21:26)
[2020-07-23] MEDS ORDERED: Dextrose Gel 15 GM/37.5 ML TUBE PO PRN ×2 (21:26)
[2020-07-23] MEDS ORDERED: D5% in Water 1,000 ML IVC PRN (21:26)
[2020-07-23] MEDS ORDERED: Potassium Chloride 20 MEQ, Lidocaine 1% 2 ML in 0.9 % Sodium Chloride 250 ML IVPB ONE (21:27)
[2020-07-23 21:39] LABS: Amylase 56 Units/L (29-103); Lipase 22 Units/L (11-82)
[2020-07-23] MEDS: *HR* LORazepam 2 MG/ML VIAL IVP PRN (23:20)
[2020-07-24 00:59] LABS: BUN/Creatinine Ratio 12 (6-26); Blood Urea Nitrogen 7 mg/dL (6-20); Calcium 8.9 mg/dL (8.6-10.3); Carbon Dioxide 25 mEq/L (23-29); Chloride 103 mEq/L (98-107); Chol/HDL Ratio 2.2 (0-4.9); Cholesterol 162 mg/dL (< 200); Glucose 118 mg/dL (70-105); HDL Cholesterol 75 mg/dL (40-59); LDL Cholesterol,Calculated 70 mg/dL (< 100); Magnesium 1.7 mg/dL (1.6-2.6); Osmolality,Calculated 293 (280-300); Potassium 3.5 mEq/L (3.5-5.1); Sodium 142 mEq/L (136-145); Triglycerides 84 mg/dL (< 150); eGFR For African Americans > 60 (> 60); eGFR For Non-African Americans > 60 (> 60)
[2020-07-24 01:02] LABS: % Iron Saturation 34 % (20-55); Iron 117 mcg/dL (65-175); Transferrin 249 mg/dL (203-362)
[2020-07-24 01:04] LABS: Hematocrit 46.2 % (37.5-50.1); Hemoglobin 16.3 g/dL (12.9-16.9); Mean Corpuscular HGB Conc 35.3 g/dL (31.6-35.5); Mean Corpuscular Hemoglobin 29.5 pg (28.0-33.3); Mean Corpuscular Volume 83.5 fL (83.0-100.0); Mean Platelet Volume 9.7 fL (9.4-12.4); Platelet Count 322 K/mcL (140-400); Red Blood Count 5.53 M/mcL (4.19-5.50); Red Cell Distribution Width 12.3 % (11.5-14.5)
[2020-07-24 01:20] LABS: Ferritin 109 ng/mL (20-250)
[2020-07-24 01:53] LABS: Estimated Average Glucose 103 mg/dl; Folate 3.5 ng/mL (3.0-16.0); Hemoglobin A1C 5.2 %
[2020-07-24] MEDS: *HR* Heparin 5,000 UNIT/ML VIAL SQ SCH ×2 (05:03→17:52)
[2020-07-24] MEDS: *HR* LORazepam 2 MG/ML VIAL IVP PRN ×4 (05:08→23:08)
[2020-07-24] MEDS: Vitamin B Complex/Vit C/Vit E 1 EACH TABLET PO SCH (08:45)
[2020-07-24] MEDS: Thiamine (B-1) 100 MG TABLET PO SCH (08:45)
[2020-07-24] MEDS: Folic Acid 1 MG TABLET PO SCH (08:46)
[2020-07-24] MEDS: amLODIPine 5 MG TABLET PO SCH (10:07)
[2020-07-24] MEDS: Folic Acid 1 MG in 0.9 % Sodium Chloride 50 ML IVPB SCH (10:07)
[2020-07-24] MEDS ORDERED: Melatonin 3 MG TABLET PO PRN (17:59)
[2020-07-24] MEDS ORDERED: Acetaminophen 325 MG TABLET PO PRN (19:28)
[2020-07-24] MEDS ORDERED: Ketorolac 15 MG/ML VIAL IVP ONE (19:28)
[2020-07-24] MEDS: Pantoprazole 40 MG VIAL IVP SCH (19:57)
[2020-07-25] MEDS: *HR* Heparin 5,000 UNIT/ML VIAL SQ SCH ×2 (05:01→16:23)
[2020-07-25] MEDS: amLODIPine 5 MG TABLET PO SCH (08:24)
[2020-07-25] MEDS: Pantoprazole 40 MG VIAL IVP SCH (08:24)
[2020-07-25] MEDS: Vitamin B Complex/Vit C/Vit E 1 EACH TABLET PO SCH (08:24)
[2020-07-25] MEDS: Folic Acid 1 MG TABLET PO SCH (08:24)
[2020-07-25] MEDS: Thiamine (B-1) 100 MG TABLET PO SCH (08:24)
[2020-07-25] MEDS: Folic Acid 1 MG in 0.9 % Sodium Chloride 50 ML IVPB SCH (08:30)
[2020-07-25] MEDS: *HR* LORazepam 0.5 MG TABLET PO SCH ×4 (09:04→19:28)
[2020-07-25 10:41] LABS: Hematocrit 41.7 % (37.5-50.1); Mean Corpuscular Hemoglobin 29.3 pg (28.0-33.3); Mean Corpuscular Volume 83.7 fL (83.0-100.0); Mean Platelet Volume 9.6 fL (9.4-12.4); Platelet Count 237 K/mcL (140-400); Red Blood Count 4.98 M/mcL (4.19-5.50); Red Cell Distribution Width 12.2 % (11.5-14.5); White Blood Count 8.8 K/mcL (4.3-11.1)
[2020-07-25 10:46] LABS: Hemoglobin 14.6 g/dL (12.9-16.9)
[2020-07-25 11:01] LABS: BUN/Creatinine Ratio 32 (6-26); Blood Urea Nitrogen 23 mg/dL (6-20); Calcium 9.6 mg/dL (8.6-10.3); Carbon Dioxide 29 mEq/L (23-29); Chloride 103 mEq/L (98-107); Glucose 123 mg/dL (70-105); Osmolality,Calculated 291 (280-300); Potassium 3.5 mEq/L (3.5-5.1); Sodium 138 mEq/L (136-145); eGFR For African Americans > 60 (> 60); eGFR For Non-African Americans > 60 (> 60)
[2020-07-25] MEDS: Nicotine 21 MG PATCH.TD24 TD SCH (16:22)
[2020-07-25] MEDS ORDERED: Ibuprofen 600 MG TABLET PO ONE (18:00)
[2020-07-25] MEDS ORDERED: traZODone 50 MG TABLET PO ONE (21:00)
[2020-07-25] MEDS ORDERED: *HR* LORazepam 2 MG/ML VIAL IVP ONE (22:36)
[2020-07-26] MEDS: *HR* LORazepam 2 MG/ML VIAL IVP PRN (01:39)
[2020-07-26 04:54] LABS: Basophils # 0.1 K/mcL (0.0-0.2); Basophils % 0.8 %; Eosinophils # 0.1 K/mcL (0.0-0.6); Eosinophils % 1.1 %; Hematocrit 40.1 % (37.5-50.1); Immature Granulocytes % 0.3 % (0-4); Lymphocytes # 3.1 K/mcL (0.6-4.6); Lymphocytes % 30.5 %; Mean Corpuscular HGB Conc 34.9 g/dL (31.6-35.5); Mean Corpuscular Hemoglobin 29.4 pg (28.0-33.3); Mean Corpuscular Volume 84.1 fL (83.0-100.0); Mean Platelet Volume 10.2 fL (9.4-12.4); Monocytes # 0.8 K/mcL (0.0-1.3); Monocytes % 8.2 %; Platelet Count 243 K/mcL (140-400); Red Blood Count 4.77 M/mcL (4.19-5.50); Red Cell Distribution Width 12.2 % (11.5-14.5); Segmented Neutrophils % 59.1 %; White Blood Count 10.1 K/mcL (4.3-11.1)
[2020-07-26 05:04] LABS: BUN/Creatinine Ratio 27 (6-26); Blood Urea Nitrogen 20 mg/dL (6-20); Calcium 9.1 mg/dL (8.6-10.3); Carbon Dioxide 28 mEq/L (23-29); Chloride 105 mEq/L (98-107); Glucose 102 mg/dL (70-105); Magnesium 1.9 mg/dL (1.6-2.6); Osmolality,Calculated 293 (280-300); Potassium 3.3 mEq/L (3.5-5.1); Sodium 140 mEq/L (136-145); eGFR For African Americans > 60 (> 60); eGFR For Non-African Americans > 60 (> 60)
[2020-07-26] MEDS: Folic Acid 1 MG in 0.9 % Sodium Chloride 50 ML IVPB SCH (08:19)
[2020-07-26] MEDS: Vitamin B Complex/Vit C/Vit E 1 EACH TABLET PO SCH (08:19)
[2020-07-26] MEDS: Thiamine (B-1) 100 MG TABLET PO SCH (08:20)
[2020-07-26] MEDS: amLODIPine 5 MG TABLET PO SCH (08:20)
[2020-07-26] MEDS: Folic Acid 1 MG TABLET PO SCH (08:20)
[2020-07-26] MEDS: *HR* LORazepam 0.5 MG TABLET PO SCH ×4 (08:20→19:18)
[2020-07-26] MEDS: Nicotine 21 MG PATCH.TD24 TD SCH (08:20)
[2020-07-26] MEDS: *HR* OxyCODONE Immed Rel 5 MG TABLET PO PRN ×2 (14:04→19:18)
[2020-07-27] MEDS: *HR* LORazepam 2 MG/ML VIAL IVP PRN ×2 (01:42→05:43)
[2020-07-27] MEDS: *HR* OxyCODONE Immed Rel 5 MG TABLET PO PRN ×2 (01:42→05:43)
[2020-07-27 05:24] LABS: Basophils # 0.1 K/mcL (0.0-0.2); Basophils % 0.6 %; Eosinophils # 0.1 K/mcL (0.0-0.6); Eosinophils % 1.2 %; Hematocrit 39.8 % (37.5-50.1); Hemoglobin 13.8 g/dL (12.9-16.9); Immature Granulocytes % 0.2 % (0-4); Lymphocytes # 3.3 K/mcL (0.6-4.6); Lymphocytes % 27.2 %; Mean Corpuscular HGB Conc 34.7 g/dL (31.6-35.5); Mean Corpuscular Hemoglobin 30.2 pg (28.0-33.3); Mean Corpuscular Volume 87.1 fL (83.0-100.0); Mean Platelet Volume 10.1 fL (9.4-12.4); Monocytes # 0.8 K/mcL (0.0-1.3); Monocytes % 6.8 %; Neutrophils # 7.7 K/mcL (1.6-8.9); Platelet Count 238 K/mcL (140-400); Red Blood Count 4.57 M/mcL (4.19-5.50); Red Cell Distribution Width 12.9 % (11.5-14.5)
[2020-07-27 05:41] LABS: BUN/Creatinine Ratio 31 (6-26); Blood Urea Nitrogen 24 mg/dL (6-20); Calcium 9.2 mg/dL (8.6-10.3); Carbon Dioxide 25 mEq/L (23-29); Chloride 106 mEq/L (98-107); Glucose 93 mg/dL (70-105); Magnesium 1.8 mg/dL (1.6-2.6); Osmolality,Calculated 292 (280-300); Sodium 139 mEq/L (136-145); eGFR For African Americans > 60 (> 60); eGFR For Non-African Americans > 60 (> 60)
[2020-07-27 07:00] VITALS: BP 142/94
[2020-07-27] MEDS: Nicotine 21 MG PATCH.TD24 TD SCH (08:48)
[2020-07-27] MEDS: Thiamine (B-1) 100 MG TABLET PO SCH (08:48)
[2020-07-27] MEDS: amLODIPine 5 MG TABLET PO SCH (08:48)
[2020-07-27] MEDS: *HR* LORazepam 0.5 MG TABLET PO SCH (08:48)
[2020-07-27] MEDS: Folic Acid 1 MG TABLET PO SCH (08:48)
[2020-07-27] MEDS: Vitamin B Complex/Vit C/Vit E 1 EACH TABLET PO SCH (08:48)
== END 2020-07-27 10:06 | disposition home or self-care (01) | DRG 897 ==
LOC: 3BNU 17:59 → EMEROOARM 17:59 → 3BNU 21:26 → SUATTDRO 07-24 12:28
PROVIDERS: ADMIT Internal Medicine; ATTEND Pharmacist